=== PATIENT | male | born 1990 | race Caucasian/White ===

== ENCOUNTER 2019-11-04 20:55 | Emergency (ER) | payer OTHER ==
[2019-11-04 21:58] VITALS: BMI 28.0
[2019-11-04 22:33] LABS: BASO % 0.6 % (0-2.0); EOS % 0.2 % (0-4.5); HEMATOCRIT 49.3 % (35.4-49); HEMOGLOBIN 16.3 GM/dL (11.7-16.9); LYMPH % 9.8 % (8-40); MCH 28.8 pg (25.7-33.7); MEAN CELL VOLUME 87.4 fl (80-96); MONO % 8.5 % (3.8-10.2); NEUT % 80.9 % (42.8-82.8); PLATELET COUNT 315 K/MM3 (134-434); RBC 5.64 M/mm3 (4.00-5.60)
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
[2019-11-04 22:57] LABS: ALBUMIN 4.6 g/dl (3.4-5.0); BILIRUBIN,TOTAL 0.4 mg/dL (0.2-1); BLOOD UREA NITROGEN 10.9 mg/dL (7-18); CALCIUM 9.4 mg/dL (8.5-10.1); POTASSIUM 4.2 mmol/L (3.5-5.1)
[2019-11-04 22:58] LABS: INR 1.1 (0.83-1.09)
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
[2019-11-05] MEDS ORDERED: ACETAMINOPHEN 1000 MG/100 ML VIAL (NON FORMULARY) IVPB ONE (04:22)
[2019-11-05] MEDS ORDERED: ACETAMINOPHEN INJECTION 100 ML IVPB ONE (04:23)
[2019-11-05 06:28] VITALS: BP 105/60; PULSE 86; TEMP 7
== END 2019-11-05 06:06 | disposition home or self-care (01) ==
LOC: JER 20:55
PROC: 3E033GC Introduction of Other Therapeutic Substance into Peripheral Vein, Percutaneous Approach (ICD-10-PCS; principal; 2019-11-05)
DX: R51 Headache (principal); R10.84 Generalized abdominal pain; M25.561 Pain in right knee; V47.5XXA Car driver injured in collision with fixed or stationary object in traffic accident, initial encounter
CPT/HCPCS: 36415; 70450-TC; 71260-TC; 72125-TC; 73562-TC-RT-FY; 74177-TC; 80053; 85025; 85610; 86850; 86900; 86901; 99285-25; J0131; Q9967